=== PATIENT | female | born 1950 | race Caucasian/White ===

== ENCOUNTER 2018-08-20 20:05 | Emergency (ER) | payer OTHER, MEDICARE ==
[2018-08-20 21:55] LABS: Absolute Monocytes 0.4 K/uL (0.1-1.3); Absolute Neutrophil 4.1 K/uL (1.8-8.0); Basophils % 0.7 % (0-1.3); Eosinophils % 1.2 % (0-4.4); Hematocrit 41.5 % (36.0-45.0); Lymphocytes % 30.6 % (15.3-44.8); MPV 8.4 fL (7.6-11.3); Monocytes % 5.8 % (3.3-12.3); Protime INR 0.96; RBC Red Blood Cell Count 4.56 M/uL (3.86-4.86)
[2018-08-20 22:10] LABS: ALT/SGPT 25 U/L (12-78); AST/SGOT 22 U/L (15-37); Albumin 3.6 g/dL (3.4-5.0); Alkaline Phosphatase 73 U/L (45-117); BUN Blood Urea Nitrogen 19 mg/dL (7-18); Bicarbonate 31 mmol/L (21-32); Bilirubin Direct 0.1 mg/dL (0-0.2); Bilirubin Total 0.3 mg/dL (0.2-1.0); Glucose Level 104 mg/dL (74-106); Magnesium 1.9 mg/dL (1.8-2.4); NT PRO-BNP 76 pg/mL (<125); Potassium 3.4 mmol/L (3.5-5.1); Protein, Total 7.7 g/dL (6.4-8.2); Sodium Level 142 mmol/L (136-145); Troponin (Emerg Dept Use Only) < 0.02 ng/mL (0.0-0.045)
--- NOTE | 2018-08-21 00:39 | ER ---
Nurse's Notes [facility] Name: Ann Nevarez Age: 68 yrs Sex: Female : 1950 Arrival Date: 08/20/2018 Time: 20:06 Bed 5 Private MD: None, None Diagnosis: Paresthesia of skin Presentation: 08/20 20:17 Presenting complaint: Patient states: "I was playing on my iPad when my hand started to jd3 feel numb and it traveled up my arm.". Transition of care: patient was not received from another setting of care. Onset of symptoms was August 20, 2018 at 19:30. Risk Assessment: Do you want to hurt yourself or someone else? Patient reports no desire to harm self or others. Initial Sepsis Screen: Does the patient meet any 2 criteria? No. Patient's initial sepsis screen is negative. Does the patient have a suspected source of infection? No. Patient's initial sepsis screen is negative. Care prior to arrival: None. 20:17 Method Of Arrival: Wheelchair jd3 20:17 Acuity: GREGORY 2 jd3 Triage Assessment: 20:22 Neuro: Level of Consciousness is awake, alert, obeys commands, Oriented to person, jd3 place, time, situation, Appropriate for age Speech is normal, Facial symmetry appears normal, Pupils are PERRLA, Reports numbness in left arm. Historical: - Allergies: 20:21 No Known Allergies; jd3 - Home Meds: 20:21 folic acid Oral [Active]; methotrexate sodium 2.5 mg Oral tab [Active]; alendronate jd3 oral oral [Active]; prednisone 50 mg Oral tab [Active]; - PMHx: 20:21 Rheumatoid Arthritis; jd3 - PSHx: 20:21 cataract surgery; jd3 - Immunization history:: Adult Immunizations up to date. - Social history:: Smoking status: Patient uses tobacco products, smokes one-half pack cigarettes per day. - Ebola Screening: : Patient negative for fever greater than or equal to 101.5 degrees Fahrenheit, and additional compatible Ebola Virus Disease symptoms. Screenin:28 VAN Screening: Arm Drift: Patient shows no arm weakness. Patient is VAN negative. ao Visual Disturbance: No visual disturbance noted. Aphasia: No aphasia noted. Neglect: No neglect noted. 20:32 Patient has been NPO before screening. The patient is alert, able to follow commands. ao The patient does not exhibit slurred or garbled speech The patient is not exhibiting difficulty speaking. The patient does not exhibit difficulty understanding words. The patient is able to swallow own secretions with no drooling or need for suction. Patient tolerated one teaspoon of water. No drooling, immediate coughing, gurgling, or clearing of the throat was noted. The patient tolerated 90mL of water. No drooling, immediate coughing, gurgling, or clearing of the throat was noted. The patient passed the bedside swallow screening. Oral medications may be given as ordered. Contact Physician for further diet orders. 22:53 Abuse screen: Denies threats or abuse. Denies injuries from another. Nutritional ao screening: No deficits noted. Tuberculosis screening: No symptoms or risk factors identified. Fall Risk None identified. Assessment: 20:33 General: Appears in no apparent distress. Behavior is calm, cooperative. Pain: Denies ao pain. Neuro: Level of Consciousness is awake, alert, obeys commands, Oriented to person, place, time, situation, Appropriate for age Moves all extremities. Full function Speech is normal, Facial symmetry appears normal, Pupils are PERRLA. Cardiovascular: Capillary refill < 3 seconds. Respiratory: Airway is patent Breath sounds are clear bilaterally. GI: Bowel sounds present X 4 quads. : No signs and/or symptoms were reported regarding the genitourinary system. EENT: No signs and/or symptoms were reported regarding the EENT system. Derm: No signs and/or symptoms reported regarding the dermatologic system. Skin is intact, Skin is pink, warm \\T\\ dry. normal. Musculoskeletal: Circulation, motion, and sensation intact. Range of motion:. 21:40 Reassessment: Patient appears in no apparent distress at this time. Patient and/or ao family updated on plan of care and expected duration. Pain level reassessed. Waiting on lab results. 22:52 Reassessment: Patient appears in no apparent distress at this time. Patient and/or ao family updated on plan of care and expected duration. Pain level reassessed. Waiting on dispo orders. 08/21 00:05 Reassessment: Patient appears in no apparent distress at this time. Patient and/or ao family updated on plan of care and expected duration. Pain level reassessed. Waiting on dispo orders. 00:55 Reassessment: DC instructions given to Patient. Patient agree with POC and to follow up ao with a neurologist and PCP. 01:30 Reassessment: Dr Stokes spoke to patient and family and offered the option to stay in ao the hospital to get and MRI. Patient wants to go home and follow up with a Dr for and outpatient MRi. Vital Signs: 08/20 20:21 BP 195 / 109; Pulse 105; Resp 17 S; Pulse Ox 99% on R/A; Weight 62.6 kg (R); Height 5 jd3 ft. 3 in. (160.02 cm) (R); Pain 0/10; 21:40 BP 162 / 93; Pulse 92; Resp 18; Pulse Ox 99% on R/A; Pain 0/10; ao 22:52 BP 156 / 92; Pulse 85; Resp 20; Pulse Ox 99% on R/A; Pain 0/10; ao 08/21 00:05 BP 167 / 92; Pulse 78; Resp 16; Pulse Ox 99% on R/A; Pain 0/10; ao 01:10 BP 155 / 92; Pulse 84; Resp 18; Temp 98.5; Pulse Ox 100% on R/A; Pain 0/10; ao 03 20:21 Body Mass Index 24.45 (62.60 kg, 160.02 cm) jd3 NIH Stroke Scale Scores: 08/20 20:28 NIHSS Score: 0 ao 08/21 04:10 NIHSS Score: 0 ED Course: 08/20 20:06 Patient arrived in ED. dl4 20:06 None, None is Private Physician. dl4 20:19 Triage completed. jd3 20:22 Arm band placed on. jd3 20:28 Yovanny Martinez, RN is Primary Nurse. ao 20:51 Luciano Stokes MD is Attending Physician. gs 21:00 Inserted saline lock: 20 gauge in left antecubital area, using aseptic technique. Blood ao collected. 21:25 Radiology exam delayed due to IV insertion attempt and/or patient not having vm2 appropriate IV at this time. EKG at this time. 21:35 XRAY Chest (1 view) In Process Unspecified. EDMS 21:[address] via stretcher. vm2 21:55 CT completed. Patient tolerated procedure well. Patient moved back from CT. vm2 22:05 CT Head Brain wo Cont In Process Unspecified. EDMS 22:52 Patient has correct armband on for positive identification. Pulse ox on. NIBP on. ao 08/21 00:39 Stiven Beckford MD is Referral Physician. gs 00:40 Eh Burnett DO is Referral Physician. gs 01:30 No provider procedures requiring assistance completed. ao 01:30 IV discontinued, intact, bleeding controlled, No redness/swelling at site. Pressure ao dressing applied. Administered Medications: No medications were administered Outcome: 00:38 Discharge ordered by . gs 01:35 Patient left the ED. ao 03:37 Discharged to home ambulatory. ao 03:37 Condition: stable 03:37 Discharge instructions given to patient, Instructed on discharge instructions, follow up and referral plans. Demonstrated understanding of instructions, follow-up care, medications. NIH Stroke Scale - NIH Stroke Score Date: 08/20/2018 Time: 20:28 Total Score = 0 1a. Level of Consciousness (LOC) - 0(Alert) 1b. Level of Consciousness (LOC) (Year \\T\\ Age) - 0(Both) 1c. LOC Commands (Open \\T\\ Closes Eyes/Vice President [employer]) - 0(Both) 2. Best Gaze (Lateral Gaze Paresis) - 0(Normal) 3. Visual Field Loss - 0(No visual loss) 4. Facial Palsy - 0(Normal) 5a. Left Arm: Motor (10-second hold) - 0(No drift) 5b. Right Arm: Motor (10-second hold) - 0(No drift) 6a. Left Leg: Motor (5-second hold - always test supine) - 0(No drift) 6b. Right Leg: Motor (5-second hold - always test supine) - 0(No drift) 7. Limb Ataxia (finger/nose \\T\\ heel/chavez - test with eyes open) - 0(Absent) 8. Sensory Loss (pinprick arms/legs/face) - 0(Normal) 9. Best Language: Aphasia (description/naming/reading) - 0(No aphasia) 10. Dysarthria (speech clarity - read or repeat words) - 0(Normal) 11. Extinction and Inattention (visual/tactile/auditory/spatial/personal) - 0(No abnormality) Initials: ao NIH Stroke Scale - NIH Stroke Score Date: 08/21/2018 Time: 04:10 Total Score = 0 1a. Level of Consciousness (LOC) - 0(Alert) 1b. Level of Consciousness (LOC) (Year \\T\\ Age) - 0(Both) 1c. LOC Commands (Open \\T\\ Closes Eyes/Vice President [employer]) - 0(Both) 2. Best Gaze (Lateral Gaze Paresis) - 0(Normal) 3. Visual Field Loss - 0(No visual loss) 4. Facial Palsy - 0(Normal) 5a. Left Arm: Motor (10-second hold) - 0(No drift) 5b. Right Arm: Motor (10-second hold) - 0(No drift) 6a. Left Leg: Motor (5-second hold - always test supine) - 0(No drift) 6b. Right Leg: Motor (5-second hold - always test supine) - 0(No drift) 7. Limb Ataxia (finger/nose \\T\\ heel/chavez - test with eyes open) - 0(Absent) 8. Sensory Loss (pinprick arms/legs/face) - 0(Normal) 9. Best Language: Aphasia (description/naming/reading) - 0(No aphasia) 10. Dysarthria (speech clarity - read or repeat words) - 0(Normal) 11. Extinction and Inattention (visual/tactile/auditory/spatial/personal) - 0(No abnormality) Initials: Signatures: Dispatcher [employer] Yovanny Lewis, RN Nlei Jacobs 2 Luciano Stokes MD MD gs Davies, Jonathon, RN RN jd3 Luna, David dl4
--- NOTE | 2018-08-21 00:39 | EDPHYS ---
Physician Documentation [facility] Name: Ann Nevarez Age: 68 yrs Sex: Female : 1950 Arrival Date: 08/20/2018 Time: 20:06 Bed 5 Private MD: None, None ED Physician Luciano Stokes HPI: 08/21 04:10 This 68 yrs old Female presents to ER via Wheelchair with complaints of gs Dizziness, Numbness Of Arm. 04:10 The patient presents to the emergency department with paresthesias of the dorsal aspect gs of left forearm, left wrist and left hand. Onset: The symptoms/episode began/occurred acutely, just prior to arrival, 1 hour(s) ago. Associated signs and symptoms: Pertinent negatives: altered mental status, loss of vision, weakness. Severity of symptoms: At their worst the symptoms were moderate in the emergency department the symptoms have resolved and did so just prior to arrival. Current symptoms: Currently, the patient is not experiencing any symptoms, the patient feels back to baseline. The patient has not experienced similar symptoms in the past. Historical: - Allergies: 08/20 20:21 No Known Allergies; jd3 - Home Meds: 20:21 folic acid Oral [Active]; methotrexate sodium 2.5 mg Oral tab [Active]; alendronate jd3 oral oral [Active]; prednisone 50 mg Oral tab [Active]; - PMHx: 20:21 Rheumatoid Arthritis; jd3 - PSHx: 20:21 cataract surgery; jd3 - Immunization history:: Adult Immunizations up to date. - Social history:: Smoking status: Patient uses tobacco products, smokes one-half pack cigarettes per day. - Ebola Screening: : Patient negative for fever greater than or equal to 101.5 degrees Fahrenheit, and additional compatible Ebola Virus Disease symptoms. ROS: 08/21 04:10 All other systems are negative. gs Exam: 04:10 Head/Face: Normocephalic, atraumatic. Eyes: Pupils equal round and reactive to light, gs extra-ocular motions intact. Lids and lashes normal. Conjunctiva and sclera are non-icteric and not injected. Cornea within normal limits. Periorbital areas with no swelling, redness, or edema. ENT: Nares patent. No nasal discharge, no septal abnormalities noted. Tympanic membranes are normal and external auditory canals are clear. Oropharynx with no redness, swelling, or masses, exudates, or evidence of obstruction, uvula midline. Mucous membranes moist. Neck: Trachea midline, no thyromegaly or masses palpated, and no cervical lymphadenopathy. Supple, full range of motion without nuchal rigidity, or vertebral point tenderness. No Meningismus. Chest/axilla: Normal chest wall appearance and motion. Nontender with no deformity. No lesions are appreciated. Cardiovascular: Regular rate and rhythm with a normal S1 and S2. No gallops, murmurs, or rubs. Normal PMI, no JVD. No pulse deficits. Respiratory: Lungs have equal breath sounds bilaterally, clear to auscultation and percussion. No rales, rhonchi or wheezes noted. No increased work of breathing, no retractions or nasal flaring. Abdomen/GI: Soft, non-tender, with normal bowel sounds. No distension or tympany. No guarding or rebound. No evidence of tenderness throughout. Back: No spinal tenderness. No costovertebral tenderness. Full range of motion. Skin: Warm, dry with normal turgor. Normal color with no rashes, no lesions, and no evidence of cellulitis. MS/ Extremity: Pulses equal, no cyanosis. Neurovascular intact. Full, normal range of motion. 04:10 Constitutional: The patient appears alert, awake. 04:10 Neuro: Orientation: is normal, Cranial nerves: grossly normal, Cerebellar function: normal finger to nose testing, Motor: moves all fours, strength is 5/5 in all extremities, Sensation: no obvious gross deficits, pin prick testing is normal. 04:10 ECG was reviewed by the Attending Physician. Vital Signs: 08/20 20:21 BP 195 / 109; Pulse 105; Resp 17 S; Pulse Ox 99% on R/A; Weight 62.6 kg (R); Height 5 jd3 ft. 3 in. (160.02 cm) (R); Pain 0/10; 21:40 BP 162 / 93; Pulse 92; Resp 18; Pulse Ox 99% on R/A; Pain 0/10; ao 22:52 BP 156 / 92; Pulse 85; Resp 20; Pulse Ox 99% on R/A; Pain 0/10; ao 08/21 00:05 BP 167 / 92; Pulse 78; Resp 16; Pulse Ox 99% on R/A; Pain 0/10; ao 01:10 BP 155 / 92; Pulse 84; Resp 18; Temp 98.5; Pulse Ox 100% on R/A; Pain 0/10; ao 08/20 20:21 Body Mass Index 24.45 (62.60 kg, 160.02 cm) jd3 NIH Stroke Scale Scores: 08/20 20:28 NIHSS Score: 0 ao 08/21 04:10 NIHSS Score: 0 gs MDM: 08/20 21:06 Patient medically screened. 08/21 04:10 Data reviewed: vital signs, nurses notes. Data reviewed: ddx cva tia paresthesia. Data gs interpreted: clinical research monitor:. Counseling: I had a detailed discussion with the patient and/or guardian regarding: the historical points, exam findings, and any diagnostic results supporting the discharge/admit diagnosis, lab results, radiology results, offered admit discussed possibility of cva, probability of tia workup and care plan for each wants to go home and follow up.. Response to treatment: the patient's symptoms have resolved after treatment, and as a result, I will discharge patient. 08/20 21:12 Order name: Basic Metabolic Panel; Complete Time: 22:22 08/20 21:12 Order name: CBC with Diff; Complete Time: 22:22 08/20 21:12 Order name: LFT's; Complete Time: 22:22 08/20 21:12 Order name: Magnesium; Complete Time: 22:22 08/20 21:12 Order name: NT PRO-BNP; Complete Time: 22:22 08/20 21:12 Order name: PT-INR; Complete Time: 22:22 08/20 21:12 Order name: CT Head Brain wo Cont 08/20 21:12 Order name: Troponin (emerg Dept Use Only); Complete Time: 22:22 08/20 21:12 Order name: XRAY Chest (1 view) 08/20 21:12 Order name: EKG; Complete Time: 21:13 08/20 21:12 Order name: Cardiac monitoring; Complete Time: :43 08/20 21:12 Order name: EKG - Nurse/Tech; Complete Time: 21:43 08/20 21:12 Order name: IV Saline Lock; Complete Time: :43 08/20 21:12 Order name: Labs collected and sent; Complete Time: 21:43 gs 08/20 21:12 Order name: O2 Per Protocol; Complete Time: 21:18 gs 08/20 21:12 Order name: O2 Sat Monitoring; Complete Time: 21:18 gs EC:10 Rate is 86 beats/min. Rhythm is regular. MT interval is normal. QRS interval is normal. gs No Q waves. T waves are Normal. No ST changes noted. Clinical impression: NSR w/ Non-specific ST/T Changes. Interpreted by me. Administered Medications: No medications were administered Disposition: 08/21/18 00:38 Discharged to Home. Impression: Paresthesia of skin. - Condition is Stable. - Discharge Instructions: Transient Ischemic Attack, Paresthesia, [id number], Managing Your Hypertension. - Medication Reconciliation Form, Thank You Letter, Antibiotic Education, Prescription Opioid Use form. - Follow up: Private Physician; When: 2 - 3 days; Reason: Re-evaluation by your physician. Follow up: Stiven Beckford MD; When: 2 - 3 days; Reason: Re-evaluation by your physician. Follow up: Eh Burnett DO; When: 2 - 3 days; Reason: Re-evaluation by your physician. - Problem is new. - Symptoms are resolved. NIH Stroke Scale - NIH Stroke Score Date: 08/20/2018 Time: 20:28 Total Score = 0 1a. Level of Consciousness (LOC) - 0(Alert) 1b. Level of Consciousness (LOC) (Year \T\ Age) - 0(Both) 1c. LOC Commands (Open \T\ Closes Eyes/Health Sciences Manager) - 0(Both) 2. Best Gaze (Lateral Gaze Paresis) - 0(Normal) 3. Visual Field Loss - 0(No visual loss) 4. Facial Palsy - 0(Normal) 5a. Left Arm: Motor (10-second hold) - 0(No drift) 5b. Right Arm: Motor (10-second hold) - 0(No drift) 6a. Left Leg: Motor (5-second hold - always test supine) - 0(No drift) 6b. Right Leg: Motor (5-second hold - always test supine) - 0(No drift) 7. Limb Ataxia (finger/nose \T\ heel/chavez - test with eyes open) - 0(Absent) 8. Sensory Loss (pinprick arms/legs/face) - 0(Normal) 9. Best Language: Aphasia (description/naming/reading) - 0(No aphasia) 10. Dysarthria (speech clarity - read or repeat words) - 0(Normal) 11. Extinction and Inattention (visual/tactile/auditory/spatial/personal) - 0(No abnormality) Initials: coleen NIH Stroke Scale - NIH Stroke Score Date: 08/21/2018 Time: 04:10 Total Score = 0 1a. Level of Consciousness (LOC) - 0(Alert) 1b. Level of Consciousness (LOC) (Year \T\ Age) - 0(Both) 1c. LOC Commands (Open \T\ Closes Eyes/Health Sciences Manager) - 0(Both) 2. Best Gaze (Lateral Gaze Paresis) - 0(Normal) 3. Visual Field Loss - 0(No visual loss) 4. Facial Palsy - 0(Normal) 5a. Left Arm: Motor (10-second hold) - 0(No drift) 5b. Right Arm: Motor (10-second hold) - 0(No drift) 6a. Left Leg: Motor (5-second hold - always test supine) - 0(No drift) 6b. Right Leg: Motor (5-second hold - always test supine) - 0(No drift) 7. Limb Ataxia (finger/nose \T\ heel/chavez - test with eyes open) - 0(Absent) 8. Sensory Loss (pinprick arms/legs/face) - 0(Normal) 9. Best Language: Aphasia (description/naming/reading) - 0(No aphasia) 10. Dysarthria (speech clarity - read or repeat words) - 0(Normal) 11. Extinction and Inattention (visual/tactile/auditory/spatial/personal) - 0(No abnormality) Initials: Signatures: Dispatcher [employer] Yovanny Lewis RN Luciano Stack MD MD gs Davies, Jonathon, RN RN jd3 Corrections: (The following items were deleted from the chart) 00:40 00:38 08/21/2018 00:38 Discharged to Home. Impression: Paresthesia of skin. gs Condition is Stable. Forms are Medication Reconciliation Form, Thank You Letter, Antibiotic Education, Prescription Opioid Use. Follow up: Private Physician; When: 2 - 3 days; Reason: Re-evaluation by your physician. Problem is new. Symptoms are resolved. 01:35 00:40 08/21/2018 00:38 Discharged to Home. Impression: Paresthesia of skin. ao Condition is Stable. Discharge Instructions: Paresthesia, [id number]. Forms are Medication Reconciliation Form, Thank You Letter, Antibiotic Education, Prescription Opioid Use. Follow up: Private Physician; When: 2 - 3 days; Reason: Re-evaluation by your physician. Follow up: Stiven Beckford; When: 2 - 3 days; Reason: Re-evaluation by your physician. Follow up: Eh Burnett; When: 2 - 3 days; Reason: Re-evaluation by your physician. Problem is new. Symptoms are resolved. gs
--- NOTE | 2018-08-21 07:15 | EKG ---
Test Date: 2018-08-20 Test Time: 21:30:06 Office Receptionist: KIKA MEASUREMENT RESULTS: Intervals: Rate: 86 MT: 148 QRSD: 66 QT: 374 QTc: 447 [place]: P: 57 MT: 148 QRS: 31 T: 30 INTERPRETIVE STATEMENTS: Normal sinus rhythm Low voltage QRS Cannot rule out Anterior infarct, age undetermined Abnormal ECG Compared to ECG 07/03/2016 19:55:37 Low QRS voltage now present Sinus tachycardia no longer present Myocardial infarct finding still present Electronically Signed On 08-21-18 07:13:40 [employer] by Juan Melara
--- NOTE | 2018-08-21 09:26 | RAD REPORT ---
EXAM DESCRIPTION: RAD - Chest Single View - 08/20/2018 9:35 pm CLINICAL HISTORY: Cough, shortness of breath, possible CVA COMPARISON: June 2016 TECHNIQUE: AP portable chest image was obtained 2132 hours . FINDINGS: No acute lung parenchymal process. Lung markings are similar to comparison. Heart and vasc ulature are normal. No measurable pleural effusion and no pneumothorax. No acute bone findings seen. Prominent left shoulder degenerative changes are present. No acute aortic findings suspected. IMPRESSION: No acute cardiopulmonary process. No significant change from comparison.
--- NOTE | 2018-08-23 11:15 | RAD REPORT ---
EXAM DESCRIPTION: CT - Head Brain Wo Cont - 08/20/2018 10:16 pm CLINICAL HISTORY: NUMBNESS COMPARISON: None Available TECHNIQUE: Contiguous axial CT images of the head were obtained. Coronal and sagittal reconstructions were created from the axial data. This exam was performed according to our departmental dose-optimization program, which includes autom ated exposure control, adjustment of the mA and/or kV according to patient size and/or use of iterati ve reconstruction technique. FINDINGS: Poorly defined foci of decreased attenuation do not exert significant mass effect on surro unding structures and are likely sequela of prior insult, most likely on the basis of small vessel di sease. There is no definite evidence of acute mass, mass effect, midline shift or hemorrhage. The ventricles and extra-axial CSF spaces are unremarkable. The brain parenchyma appears otherwise normal for the p atient's age. No acute abnormalities of the bones is seen. There is trace fluid in the right mastoid air cells. IMPRESSION: No acute intracranial abnormality. MRI is much more sensitive and specific for acute isc hemia than CT and if there is persistent concern for acute ischemia, I recommend MRI. Electronically signed by: Elliot Rosales 08/20/2018 10:11 PM [facility] Due to temporary technical issues with the PACS/Fluency reporting system, reports are being signed by the in house radiologist as a courtesy to ensure prompt reporting. The interpreting radiologist is f ully responsible for the content of the report.
== END 2018-08-21 01:35 | disposition home or self-care (01) ==
LOC: ER 20:05
DX: R20.2 Paresthesia of skin (principal); F17.210 Nicotine dependence, cigarettes, uncomplicated
CPT/HCPCS: 36415; 70450; 71045; 80048; 80076; 83735; 83880; 84484; 85025; 85610; 93005; 99284